=== PATIENT | female | born 1965 | race Caucasian/White ===

== ENCOUNTER 2019-07-31 02:17 | Emergency (ER) | payer OTHER ==
[~2019-07-31] VITALS: Ht 165.1 cm; Wt 71.7 kg
[2019-07-31] MEDS ORDERED: CIPRO500 MG PO (07:35)
[2019-07-31] MEDS ORDERED: KETO10TA2 PO (07:35)
[2019-07-31] MEDS ORDERED: TAMS0.4C PO (07:35)
== END 2019-07-31 07:45 | disposition home or self-care (01) ==
LOC: ER 02:17
DX: N20.2 Calculus of kidney with calculus of ureter (principal); R10.32 Left lower quadrant pain

== ENCOUNTER 2022-11-01 19:04 | Emergency (ER) | payer OTHER ==
[~2022-11-01] VITALS: Ht 162.6 cm; Wt 63.5 kg
[~2022-11-01 19:04] MED LIST: CIPRO500 MG PO; KETO10TA2 PO; TAMS0.4C PO
== END 2022-11-01 22:46 | disposition home or self-care (01) ==
LOC: ER 19:04
DX: R10.32 Left lower quadrant pain (principal); N20.2 Calculus of kidney with calculus of ureter